=== PATIENT | male | born 1945 | race Caucasian/White ===

== ENCOUNTER → 2018-02-17 09:01 | Outpatient (CLI) | payer MEDICARE, OTHER, SELFPAY ==
[2018-02-17 10:59] LABS: Alanine Aminotransferase 38 IU/L (21-72); Albumin 4.1 g/dL (3.5-5.0); Albumin Globulin Ratio 1.6 (1.0-2.8); Alkaline Phosphatase 82 U/L (38-126); Aspartate Aminotransferase 29 IU/L (17-59); BUN Creatinine Ratio 17.8 (6-22); Bilirubin Total 1.4 mg/dL (0.2-1.3); Blood Urea Nitrogen 16 mg/dL (9-20); Calcium 8.7 mg/dL (8.4-10.2); Carbon Dioxide 33 mmol/L (22-32); Chloride 100 mmol/L (98-107); Cholesterol 137 mg/dL (140-199); Estimated Glomerular Filt Rate > 60.0 mL/min (>60); Globulin 2.6 g/dL (1.7-4.1); Glucose 98 mg/dL (80-110); HDL Cholesterol 41 mg/dL (40-60); HEMOLYSIS 27 (0-50); LDL Cholesterol Calculated 75 mg/dL (<100); Sodium 139 mmol/L (137-145); Total Protein 6.7 g/dL (6.3-8.2); Triglycerides 104 mg/dL (35-150)
[2018-02-17 11:00] LABS: Potassium 5.8 mmol/L (3.4-5.1)
[2018-02-17 11:03] LABS: Eosinophils Percent Auto 2.7 % (2-4); Hemoglobin 11.8 g/dL (13.5-17.5); Lymphocytes Percent Auto 10.4 % (25-40); Mean Corpuscular HGB Conc 33.8 % (30-36); Mean Corpuscular Hemoglobin 30.3 PG (26-34); Mean Corpuscular Volume 89.6 fL (80-100); Monocytes Percent Auto 9.3 % (3-14); Neutrophils Absolute Auto 3100 /uL (3000-5900); Neutrophils Percent Auto 76.6 % (50-75); Platelet Count 243 X10^3/uL (150-400); Red Cell Distribution Width 15.4 % (11.6-14.8)
[2018-02-17 11:29] LABS: Prostate Specific Antigen Scrn 0.841 ng/mL (0.1-4.0)
[2018-02-17 11:44] LABS: Add Manual Diff / Slide Review SLIDE REVIEW; Red Blood Cell Count 3.91 X10^6/uL (4.5-5.9)
[2018-02-17 11:47] LABS: Poikilocytosis 1+
== END ==
PROVIDERS: PCP Family Medicine; Visit Provider Family Medicine
DX: C61 Malignant neoplasm of prostate (principal); E78.2 Mixed hyperlipidemia; I42.2 Other hypertrophic cardiomyopathy; R94.6 Abnormal results of thyroid function studies
CPT/HCPCS: 36415; 80053; 80061; 84443; 85025; G0103

== ENCOUNTER → 2018-03-31 08:19 | Outpatient (CLI) | payer MEDICARE, OTHER, SELFPAY ==
--- NOTE | 2018-03-31 08:21 | DI.ECHO.S_ITS ---
[facility]+ [facility] +---------+ : : [address] : [place] : : : : [phone] : : : : Phone: [phone]---------+ Echocardiogram Report + + :Name: ITTA MCDONOUGH Study Date: 03/31/2018 Height: 69 in : :[facility] Exam Location: [place] Weight: 195 lb : : Gender: Male BSA: 2.0 m2 : :: 1945 Age: 72 yrs BP: 140/85 mmHg: :Reason For Study: Atrial fibrillation : :Ordering Physician: Dr. Pearson : :Alex Performed By: Miri Page : + + Interpretation Summary Proximal septal thickening is noted. 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 The LVOT velocity is 1.65 m/s. The left ventricular outflow velocity with valsalva is at least 3.75 m/sec to possbily 5.0 m/sec. The ejection fraction is estimated to be 60-65%. Diastolic parameters suggest a pseudonormalization pattern, consistent with probable elevated filling pressures. Both LVEF and LVOT obstruction have not changed since prior study. The right ventricle is normal in size and function. The right ventricular systolic pressure is estimated to be at least 31 mmHg based on an estimated right atrial pressure of 3 mm Hg. The left atrium is severely dilated. Right atrial size is normal. There is systolic anterior motion of the mitral valve. There is mild mitral regurgitation. Compared to the prior echo study, there has been a decrease in the severity of mitral regurgitation. There is no other significant valvular heart disease. The ascending aorta is mildly enlarged. Procedure: A two-dimensional transthoracic echocardiogram with color flow and Doppler was performed. The study quality was technically adequate. Comparison is made with the echocardiogram of 03/10/2017. The patient was in sinus bradycardia with heart rates between 48-52 bpm during the exam. Left Ventricle: The left ventricle is normal in size, wall thickness, and systolic function without any focal wall motion abnormalities. Proximal septal thickening is noted. 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 The LVOT velocity is 1.65 m/s. The left ventricular outflow velocity with valsalva is at least 3.75 m/sec to possbily 5.0 m/sec. The ejection fraction is estimated to be 60-65%. Diastolic parameters suggest a pseudonormalization pattern, consistent with probable elevated filling pressures. Right Ventricle: The right ventricle is normal in size and function. Atria: The left atrium is severely dilated. Right atrial size is normal. There is no Doppler evidence for an interatrial shunt. Mitral Valve: The mitral valve leaflets appear mildly thickened, but open well. There is mild mitral annular calcification. There is systolic anterior motion of the mitral valve. There is mild mitral regurgitation. Compared to the prior echo study, there has been a decrease in the severity of mitral regurgitation. Aortic Valve: The aortic valve is trileaflet. The aortic valve opens well. No aortic regurgitation is present. Tricuspid Valve: The tricuspid valve is normal in structure and function. There is trace tricuspid regurgitation. The right ventricular systolic pressure is estimated to be at least 31 mmHg based on an estimated right atrial pressure of 3 mm Hg. Pulmonic Valve: The pulmonic valve is not well visualized. There is no other significant valvular heart disease. Great Vessels: The aortic root is normal size. The ascending aorta is mildly enlarged. The pulmonary artery is not well visualized, but is probably normal size. The IVC is of normal diameter and collapses greater than 50% with a sniff. This suggests a low right atrial pressure of 3 mm Hg. Pericardium/ Pleura There is no pericardial effusion. There is no pleural effusion. MMode/2D Measurements & Calculations LVIDd: 5.1 cm LVOT diam: 2.2 cm LVIDs: 3.1 cm Ao root diam: 3.4 cm FS: 39.9 % asc Aorta Diam: 3.8 cm IVSd: 0.80 cm LVPWd: 0.85 cm LV mccoy. diameter/BSA (cm/m^2): 2.5 LV sys. diameter/BSA (cm/m^2): 1.5 LA A2 area: 26.9 cm2 RA long axis: 6.0 cm LA A4 area: 32.6 cm2 RA area: 19.1 cm2 LA length (vol): 7.4 cm RA vol: 51.8 ml LA vol: 100.6 ml RA : 25.3 ml/m2 LA vol index: 49.2 ml/m2 RVD1 (basal): 3.9 cm TAPSE: 2.5 cm Doppler Measurements & Calculations Ao V2 max: 178.0 cm/sec LVOT Max Bryon: 165.0 cm/sec Ao V2 mean: 127.6 cm/sec LV V1 max P.9 mmHg Ao max P.7 mmHg LV V1 VTI: 44.3 cm Ao mean P.2 mmHg DAYANARA(I,D): 3.5 cm2 Ao V2 VTI: 46.2 cm DAYANARA(V,D): 3.4 cm2 sev ratio: 0.96 DAYANARA indexed to BSA (cm^2/m^2): 1.7 MV E max bryon: 119.2 cm/sec TR max bryon: 262.6 cm/sec MV A max bryon: 100.7 cm/sec TR max P.6 mmHg MV E/A: 1.2 PA V2 max: 84.6 cm/sec Med Peak E' Bryon: 3.6 cm/sec PA V2 mean: 62.4 cm/sec E/E' med: 33.0 PA mean P.7 mmHg Lat Peak E' Bryon: 5.0 cm/sec PA Accel Time: 0.08 sec E/E' lat: 24.1 E/e' average: 28.5 MV dec time: 0.20 sec MV P1/2t: 58.5 msec MV P1/2t max bryon: 119.7 cm/sec MVA(P1/2t): 3.8 cm2 Reading Physician:DICKSON
== END ==
PROVIDERS: PCP Family Medicine; Visit Provider Family Medicine
DX: I34.0 Nonrheumatic mitral (valve) insufficiency (principal); I48.91 Unspecified atrial fibrillation; R00.1 Bradycardia, unspecified
CPT/HCPCS: 93306

== ENCOUNTER → 2018-05-22 16:22 | Outpatient (CLI) | payer MEDICARE, OTHER, SELFPAY ==
[2018-05-22 18:47] LABS: Thyroid Stimulating Hormone 1.96 uIU/mL (0.47-4.68)
== END ==
PROVIDERS: PCP Family Medicine; Visit Provider Family Medicine
DX: R94.6 Abnormal results of thyroid function studies (principal)
CPT/HCPCS: 36415; 84443